=== PATIENT | female | born 1970 | race Asian ===

== ENCOUNTER 2019-02-14 08:03 | Outpatient (CLI) | payer OTHER | END 2019-02-14 19:26 | disposition home or self-care (01) | LOC: RAD 08:03 | DX: Z13.820 Encounter for screening for osteoporosis (principal); N95.8 Other specified menopausal and perimenopausal disorders ==

== ENCOUNTER 2019-03-06 12:03 | Outpatient (CLI) | payer OTHER | END 2019-03-06 19:27 | disposition home or self-care (01) | LOC: RAD 12:03 | DX: M25.561 Pain in right knee (principal); M25.562 Pain in left knee ==

== ENCOUNTER 2019-05-07 08:27 | Outpatient (CLI) | payer OTHER | END 2019-05-07 19:13 | disposition home or self-care (01) | LOC: MAMMO 08:27 | DX: Z12.31 Encounter for screening mammogram for malignant neoplasm of breast (principal) ==